=== PATIENT | female | born 1990 | race Caucasian/White ===

== ENCOUNTER 2017-05-16 16:35 | Emergency (ER) | payer BC ==
--- NOTE | 2017-05-16 17:08 | ED Physician Documentation ---
Fall - HISTORIAN Historian: patient, spouse - HPI Stated Complaint: foot injury Chief Complaint: Lower Extremity Injury Additional Information: turned lt ankle last noct-can walk w/sig pain-prev fx this ankle Onset: yesterday Where: home Context: tripped, lost balance r: moderate Associated Symptoms:: no loss of consciousness Location of Pain/Injury: lower extremity Injury to Left Extremity: ankle - ROS CONST: no problems NEURO: denies: dizziness, anxiety MS/SKIN/LYMPH: denies: weakness, numbness EYES/ENT: none CVS/RESP: denies: chest pain, shortness of breath GI/: denies: problems urinating, nausea, vomiting - PAST HX Past History: diabetes Type 1 Allergies/Adverse Reactions: Allergies Allergy/AdvReac Type Severity Reaction Status Date / Time sertraline HCl [From Zoloft] Allergy Severe Abdominal Verified 05/16/17 16:49 Pain Home Medications: Ambulatory Orders Medication Instructions Recorded Insulin Glargine,Hum.rec.anlog unit SQ 05/16/17 [Lantus Solostar] Insulin Lispro [Humalog] 05/16/17 - SOCIAL HX Smoking History: less than 1 pack/day Alcohol Use: none Drug Use: none - FAMILY HX Family History: no significant history - VITAL SIGNS Vital Signs: Vital Signs Temp Pulse Resp BP Pulse Ox 97.7 F 82 14 124/93 99 05/16/17 16:37 05/16/17 16:37 05/16/17 16:37 05/16/17 16:37 05/16/17 16:37 - REVIEWED ASSESSMENTS Nursing Assessment Reviewed: Yes Vitals Reviewed: Yes ED Results Lab/Radiology - Orders Orders: ED Orders Category Date Time Status LEFT ANKLE [ANKLE 3 VIEWS OR MORE] [RAD] Stat Exams 05/16/17 Ordered Fall Physical Exam - Physical Exam General Appearance: moderate distress Head: non-tender, no swelling, no obvious injury Neck: non-tender, painless ROM Resp/CVS: chest non-tender, no ecchymosis, breath sounds nml, no resp. distress , heart sounds nml Abdomen: soft, non-tender Neuro: oriented x3, sensation nml, motor nml, mood/affect nml Skin: color nml, no rash. No: cyanosis, diaphoresis, pallor, ecchymosis Back: normal inspection (lt ankle swollen and dev eversion) Extremities: hips non-tender, no pedal edema Joint: No: nml ROM, Nml gait/weight bearing - [place] Coma Score Eyes Open: Spontaneous Speech: Oriented Motor: Obeys Commands Discharge Referrals: Primary Doctor,No [Primary Care Provider] - 2 Days
[2017-05-16 17:46] VITALS: BP 118/54
--- NOTE | 2017-05-16 17:51 | Diagnostic Imaging Report ---
ELENA CABALLERO [facility] [address] [facility] [address] [address] Report Submission Date: May 16, 2017 5:39:09 PM CHEF TEACHER Patient Study Name: LIZBETH TRACY Date: May 16, 2017 5:19:36 PM CHEF TEACHER Modality Type: DX Gender: F Description: LOWER EXTREMITY : 92 Institution: [facility] Physician: ELENA CABALLERO Examination: Plain film foot History: Discomfort Findings: 3 views of the foot demonstrates normal cortical margins. No fracture or dislocation. No soft tissue swelling. No joint effusion. Impression: No acute osseous process. Electronically signed on May 16, 2017 5:39:09 PM CHEF TEACHER by: Lopez CHERY
== END 2017-05-16 17:45 ==
LOC: ED 16:35
DX: M25.572 Pain in left ankle and joints of left foot (principal)
CPT/HCPCS: 73630; 99283

== ENCOUNTER 2017-08-04 14:14 | Emergency (ER) | payer BC, OTHER ==
[2017-08-04 14:45] VITALS: BP 133/62
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
--- NOTE | 2017-08-04 16:09 | Diagnostic Imaging Report ---
[facility] [address] [address] Report Submission Date: Aug 04, 2017 3:41:55 PM MANAGER AVIATION Patient Study Name: LIZBETH TRACY Date: Aug 04, 2017 3:21:47 PM MANAGER AVIATION Modality Type: CR Gender: F Description: LOWER EXTREMITY : 92 Institution: [facility] Physician: MICH ANNA Electronically signed on Aug 04, 2017 3:41:55 PM MANAGER AVIATION by: Aldair CHERY
== END 2017-08-04 15:58 | disposition home or self-care (01) ==
LOC: ED 14:14
DX: M25.561 Pain in right knee (principal); V89.2XXA Person injured in unspecified motor-vehicle accident, traffic, initial encounter
CPT/HCPCS: 73562; 99283

== ENCOUNTER 2018-07-01 23:08 | Emergency (ER) | payer OTHER ==
[2018-07-01] MEDS ORDERED: SILVER SULFADIAZINE 25 GM 1 APPL TUBE TP ONE (23:23)
[2018-07-01] MEDS ORDERED: DIPH,PERTUSS(ACELL),TET VAC/PF 0.5 ML DISP.SYRIN IM ONE (23:23)
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
[2018-07-01] MEDS ORDERED: HYDROcodone /APAP 5/325 1 EACH TABLET PO STA (23:52)
[2018-07-02 02:05] VITALS: BP 116/74
== END 2018-07-01 23:55 | disposition home or self-care (01) ==
LOC: ED 23:08
DX: T25.232A Burn of second degree of left toe(s) (nail), initial encounter (principal); X12.XXXA Contact with other hot fluids, initial encounter; Y93.89 Activity, other specified; Y92.59 Other trade areas as the place of occurrence of the external cause; Y99.0 Civilian activity done for income or pay
CPT/HCPCS: 90471; 90715; 99282; 99284

== ENCOUNTER 2019-05-25 13:11 | Emergency (ER) | payer BC, MEDICAID ==
--- NOTE | 2019-05-25 13:32 | ED Physician Documentation ---
General Adult - HISTORIAN Historian: patient - HPI Stated Complaint: headache Chief Complaint: General Adult Onset: days ago Timing: still present Severity: moderate Further Comments: yes (Pt is a 28 yo female at 30 weeks who has had a migraine headache x 4 days. Pt has had similar headaches in the past but none that lasted as long as this one. Pt has had photophobia and nausea.) - ROS CONST: no problems EYES/ENT: problems with vision CVS/RESP: none GI/: nausea MS/SKIN/LYMPH: none NEURO/PSYCH: headache - PAST HX Past History: other (DM, migraine) Allergies/Adverse Reactions: Allergies Allergy/AdvReac Type Severity Reaction Status Date / Time sertraline HCl [From Zoloft] Allergy Severe Abdominal Verified 05/25/19 13:29 Pain Home Medications: Ambulatory Orders Medication Instructions Recorded Insulin Glargine,Hum.rec.anlog 32 unit SQ HS 05/16/17 [Lantus Solostar] Insulin Lispro [Humalog] PRN 05/16/17 Pnv No.95/Ferrous Fum/Folic AC 1 each PO DAILY 05/25/19 [Prenavite Tablet] - SOCIAL HX Smoking History: non-smoker - FAMILY HX Family History: No - VITAL SIGNS Vital Signs: Vital Signs Temp Pulse Resp BP Pulse Ox 116/74 07/02/18 02:02 - REVIEWED ASSESSMENTS Nursing Assessment Reviewed: Yes Vitals Reviewed: Yes Progress - Progress Progress: NS 1 L IVF Zofran 4 mg IV Nubain 10 mg pain 7 --> 3 General Adult Physical Exam - PHYSICAL EXAM GENERAL APPEARANCE: moderate distress EENT: eye inspection normal, pharynx normal NECK: normal inspection, supple RESPIRATORY: no resp distress, chest non-tender, breath sounds normal CVS: reg rate & rhythm, heart sounds normal ABDOMEN: soft, no organomegaly, normal bowel sounds BACK: normal inspection, no CVA tenderness SKIN: warm/dry, normal color EXTREMITIES: non-tender, normal range of motion, no evidence of injury NEURO: oriented X3, CN's nml as tested, motor nml, sensation nml Discharge Clincal Impression: Migraine Qualifiers: Migraine type: unspecified Status migrainosus presence: without status migrainosus Intractability: not intractable Qualified Code(s): G43.909 - Migraine, unspecified, not intractable, without status migrainosus Referrals: Primary Doctor,No [Primary Care Provider] - 2 Days Condition: Stable Disposition: 01 HOME, SELF-CARE Decision to Admit: NO Decision Time: 15:05
[2019-05-25] MEDS ORDERED: 0.9 % SODIUM CHLORIDE 1,000 ML IV ONE (13:35)
[2019-05-25] MEDS ORDERED: NALBUPHINE HCL 10 MG/1 ML IVP ONE (13:36)
[2019-05-25] MEDS ORDERED: ONDANSETRON HCL/PF 4 MG/ 2ML VIAL IVP ONE (13:37)
[2019-05-25] MEDS ORDERED: diphenhydrAMINE HCL 50 MG/ML VIAL IVP ONE (14:43)
[2019-05-25 15:09] VITALS: BP 125/63
== END 2019-05-25 15:07 | disposition home or self-care (01) ==
LOC: ED 13:11
DX: G43.909 Migraine, unspecified, not intractable, without status migrainosus (principal)
CPT/HCPCS: 96361; 96374; 96375; 99282; 99284; J2300; J2405; J7030; S1016

== ENCOUNTER 2019-06-28 01:59 | Emergency (ER) | payer BC, MEDICAID ==
--- NOTE | 2019-06-28 02:09 | ED Physician Documentation ---
Contractions (Preg.> 20 wks) - HISTORIAN Historian: patient - HPI Chief Complaint: OB/Uterine Contractions Additional Information: 28 year old female presents to the ER with c/o abdominal contractions that started 1 1/2 hours ago. They are approx. 20 min apart; no vaginal discharge or leakage of amniotic fluid. Last menstrual period was around the end of September; she states that she is 35 weeks and plans to induce are in 3 weeks. She is a grav. 3 para 2. *Discussed transfer to [facility]- patient refusing ambulance- explained to patient and significant other the risks of going by POV; they both voice understanding and refusal by ambulance form completed and signed. Called Labor and Delivery; spoke with Pat at [facility] who stated to send patient and they will see her. Onset: hours (1 1/2 hours) Timing: gradual onset Severity: mild, moderate - Context Contractions/Pelvic Pain: Yes Strength: weak Frequency (How Often in Minutes): 20 (irregular) Duration (Lasting How Many Minutes): 1 (less than 1 minute) Vaginal Bleeding Amount: none Amniotic Membrane Fluid Amount: none - History Where was Test Done: clinic (urine) Last Ultrasound Completed When: 06/15/19 (1 week ago) LNMP (Last Known Menstrual Period): 09/29/18 (approx. in September) : 3 Para: 2 : No Vaginal Delivery: Yes - Problems Problems w/ Current : none Problems w/ Prior : none - ROS CONST: denies: fever EYES/ENT: none CVS/RESP: none GI/: denies: nausea, vomiting MS/SKIN/LYMPH: denies: leg swelling NEURO/PSYCH: none - PAST HX Past History: none Other History: diabetes Type 1 Surgeries/Procedures: none Immunizations: UTD Allergies/Adverse Reactions: Allergies Allergy/AdvReac Type Severity Reaction Status Date / Time sertraline HCl [From Zoloft] Allergy Severe Abdominal Verified 06/28/19 03:16 Pain Home Medications: Ambulatory Orders Medication Instructions Recorded Insulin Glargine,Hum.rec.anlog 32 unit SQ HS 05/16/17 [Lantus Solostar] Insulin Lispro [Humalog] 10 units SQ AC15 05/16/17 Pnv No.95/Ferrous Fum/Folic AC 1 each PO DAILY 05/25/19 [Prenavite Tablet] - SOCIAL HX Smoking History: non-smoker Alcohol Use: none Drug Use: none - FAMILY HX Family History: none - VITAL SIGNS Vital Signs: Vital Signs Temp Pulse Resp BP Pulse Ox 125/63 05/25/19 15:07 - REVIEWED ASSESSMENTS Nursing Assessment Reviewed: Yes Vitals Reviewed: Yes Uterine Contraction Physical - EXAM General Appearance: alert, mild distress EENT: eye inspection normal, ENT inspection normal, pharynx normal, [place] Neck: nml inspection Resp/CVS: chest non-tender, breath sounds nml, heart sounds nml Abdomen: gravid uterus Back: nml inspection Skin: warm/dry, normal color Extremities: non-tender, normal range of motion Neuro/Psych: oriented x3, motor nml, sensation nml, mood/affect nml - Pelvic Exam Pelvic Exam: digital exam, external exam nml Uterus Position: Above Umbilicus Heart Tone: 0 (equipment malfunction/ positive movement with kicks) Cervical Dilatation: 0 Uterine Contraction Monitor Mode: None Uterine Contraction Frequency: 0 (No contraction noted) Uterine Contraction Duration: 0 (No contraction felt) Discharge Clincal Impression: Uterine contractions during Referrals: Primary Doctor,Lynda [Primary Care Provider] - 2 Days Additional Instructions: Spoke with Pat at [facility] and she stated to send patient over and they would evaluate her in OB triage; explained that patient was refusing ambulance; they will see her on arrival Prior to discharge; once again tried to get patient to go by ambulance and she a damantly refused. She states that she is good to go by vehicle. Condition: Stable Disposition: AGAINST MEDICAL ADVICE Decision to Admit: NO Decision Time: 02:18
[2019-06-28 03:10] VITALS: BP 137/77
== END 2019-06-28 02:15 | disposition left against medical advice (07) ==
LOC: ED 01:59
DX: O62.9 Abnormality of forces of labor, unspecified (principal); Z3A.35 35 weeks gestation of pregnancy
CPT/HCPCS: 99282; 99284